=== PATIENT | male | born 1945 | race Caucasian/White ===

== ENCOUNTER 2017-09-04 12:58 | Inpatient (IN) | payer MEDICARE, MEDICAID, OTHER ==
[2017-09-04 15:05] LABS: ADD MAN DIFF? NO
[2017-09-04 15:11] LABS: WHITE BLOOD COUNT 10.4 10^3/ul (4.8-10.8)
[2017-09-04 15:11] LABS: BASOPHIL # 0.1 10^3/ul (0.0-0.1); BASOPHILS % 0.5 % (0.0-2.0); EOSINOPHILS # 0.4 10^3/ul (0.0-0.5); EOSINOPHILS % 3.9 % (0.0-7.0); HEMATOCRIT 26.9 % (42.0-52.0); HEMOGLOBIN 8.9 g/dl (14.0-18.0); LYMPHOCYTES # 0.9 10^3/ul (0.8-2.9); LYMPHOCYTES % 8.2 % (15.0-51.0); MEAN CORPUSCULAR HEMOGLOBIN 32.8 pg (29.0-33.0); MEAN CORPUSCULAR HGB CONC 33.1 g/dl (32.0-37.0); MEAN CORPUSCULAR VOLUME 99.3 fl (82.0-101.0); MEAN PLATELET VOLUME 10.3 fl (7.4-10.4); MONOCYTE # 0.9 10^3/ul (0.3-0.9); MONOCYTES % 8.8 % (0.0-11.0); NEUTROPHILS % 77.5 % (39.0-77.0); PLATELET COUNT 212 10^3/UL (140-415); RED BLOOD COUNT 2.71 10^6/ul (4.70-6.10); RED CELL DISTRIBUTION WIDTH 14.7 % (11.5-14.5)
[2017-09-04 15:27] LABS: INR 1.03; PARTIAL THROMBOPLASTIN TIME 33.8 Sec (25.0-35.0); PROTIME 13.6 Sec (11.9-14.9); PT RATIO 1.1
[2017-09-04 15:35] LABS: ANION GAP 21 (8-16); BLOOD UREA NITROGEN 93 mg/dl (7-20); CALCIUM 8.2 mg/dl (8.4-10.2); CARBON DIOXIDE 16 mmol/L (21-31); CHLORIDE 110 mmol/L (97-110); GLUCOSE 108 mg/dl (70-220); POTASSIUM 4.9 mmol/L (3.5-5.1); SODIUM 142 mmol/L (135-144)
[2017-09-04 15:46] LABS: CREATININE 14.02 mg/dl (0.61-1.24)
[2017-09-04] MEDS ORDERED: ONDANSETRON 4 MG INJ IV ×2 (17:30)
[2017-09-04] MEDS ORDERED: NACL 0.9% 3 ML SYG IV (17:30)
[2017-09-04] MEDS ORDERED: ACETAMINOPHEN 325 MG TAB PO (17:30)
[2017-09-04] MEDS: LEVOFLOXACIN 500 MG TAB PO (19:41)
[2017-09-04] MEDS: ACETAMINOPHEN 325 MG TAB PO (19:41)
[2017-09-04] MEDS: ATORVASTATIN 40 MG TAB PO (22:15)
[2017-09-05 06:27] LABS: ADD MAN DIFF? NO
[2017-09-05 06:29] LABS: BASOPHIL # 0.1 10^3/ul (0.0-0.1); BASOPHILS % 0.5 % (0.0-2.0); EOSINOPHILS # 0.5 10^3/ul (0.0-0.5); EOSINOPHILS % 5.4 % (0.0-7.0); HEMATOCRIT 26.3 % (42.0-52.0); HEMOGLOBIN 8.5 g/dl (14.0-18.0); LYMPHOCYTES % 10.3 % (15.0-51.0); MEAN CORPUSCULAR HEMOGLOBIN 32.2 pg (29.0-33.0); MEAN CORPUSCULAR HGB CONC 32.3 g/dl (32.0-37.0); MEAN CORPUSCULAR VOLUME 99.6 fl (82.0-101.0); MONOCYTE # 0.8 10^3/ul (0.3-0.9); MONOCYTES % 8.1 % (0.0-11.0); NEUTROPHILS % 74.3 % (39.0-77.0); PLATELET COUNT 206 10^3/UL (140-415); RED BLOOD COUNT 2.64 10^6/ul (4.70-6.10); RED CELL DISTRIBUTION WIDTH 14.5 % (11.5-14.5)
[2017-09-05 06:29] LABS: WHITE BLOOD COUNT 9.5 10^3/ul (4.8-10.8)
[2017-09-05 06:55] LABS: ANION GAP 22 (8-16); BLOOD UREA NITROGEN 100 mg/dl (7-20); CARBON DIOXIDE 14 mmol/L (21-31); CHLORIDE 110 mmol/L (97-110); CREATININE 13.82 mg/dl (0.61-1.24); GLUCOSE 85 mg/dl (70-220); POTASSIUM 5.2 mmol/L (3.5-5.1); SODIUM 141 mmol/L (135-144)
[2017-09-05 07:06] LABS: MAGNESIUM 1.7 mg/dl (1.7-2.5)
[2017-09-05 07:06] LABS: PHOSPHORUS 8.5 mg/dl (2.5-4.9)
[2017-09-05] MEDS: AMLODIPINE 10 MG TAB PO (09:00)
[2017-09-05] MEDS: ASPIRIN 81 MG TAB PO (09:34)
[2017-09-05] MEDS: ARIPIPRAZOLE 5 MG TAB PO (09:34)
[2017-09-05 14:50] LABS: HEPATITIS B SURFACE ANTIGEN NEGATIVE (NEGATIVE)
[2017-09-05] MEDS: ACETAMINOPHEN 325 MG TAB PO (16:44)
[2017-09-05] MEDS: HEPARIN 1000 UNITS/ML 10 ML INJ CATHETER (17:27)
[2017-09-05] MEDS: ATORVASTATIN 40 MG TAB PO (21:03)
[2017-09-05] MEDS: BENZONATATE 100 MG CAP PO (21:44)
[2017-09-06] MEDS: ACETAMINOPHEN 325 MG TAB PO ×2 (00:28→14:45)
[2017-09-06] MEDS: AMLODIPINE 10 MG TAB PO ×2 (08:36→13:24)
[2017-09-06] MEDS: BENZONATATE 100 MG CAP PO ×3 (08:41→21:20)
[2017-09-06] MEDS: ASPIRIN 81 MG TAB PO (08:41)
[2017-09-06] MEDS: ARIPIPRAZOLE 5 MG TAB PO (08:41)
[2017-09-06] MEDS: DOCUSATE SODIUM 100 MG CAP PO (13:27)
[2017-09-06] MEDS: MAGNESIUM HYDROXIDE 30ML CUP PO (13:27)
[2017-09-06] MEDS: LEVOFLOXACIN 500 MG TAB PO (18:41)
[2017-09-06] MEDS: CEPASTAT LOZENGE MT (18:52)
[2017-09-06] MEDS: ATORVASTATIN 40 MG TAB PO (21:20)
[2017-09-07] MEDS: ARIPIPRAZOLE 5 MG TAB PO (08:33)
[2017-09-07] MEDS: AMLODIPINE 10 MG TAB PO (08:34)
[2017-09-07] MEDS: BENZONATATE 100 MG CAP PO ×3 (08:34→21:49)
[2017-09-07] MEDS: ASPIRIN 81 MG TAB PO (08:34)
[2017-09-07] MEDS ORDERED: hydrALAzine 20 MG INJ IV (09:30)
[2017-09-07] MEDS: ACETAMINOPHEN 325 MG TAB PO (10:29)
[2017-09-07 12:20] LABS: ALBUMIN 3.3 g/dl (3.3-4.9); ANION GAP 17 (8-16); BLOOD UREA NITROGEN 56 mg/dl (7-20); CALCIUM 8.8 mg/dl (8.4-10.2); CARBON DIOXIDE 25 mmol/L (21-31); CHLORIDE 102 mmol/L (97-110); GLUCOSE 132 mg/dl (70-220); PHOSPHORUS 5.3 mg/dl (2.5-4.9); POTASSIUM 4.3 mmol/L (3.5-5.1); SODIUM 140 mmol/L (135-144)
[2017-09-07] MEDS: HEPARIN 1000 UNITS/ML 10 ML INJ CATHETER (16:09)
[2017-09-07] MEDS: ATORVASTATIN 40 MG TAB PO (21:49)
[2017-09-08 06:27] LABS: WHITE BLOOD COUNT 7.2 10^3/ul (4.8-10.8)
[2017-09-08 06:27] LABS: ADD MAN DIFF? NO; BASOPHIL # 0.1 10^3/ul (0.0-0.1); BASOPHILS % 0.8 % (0.0-2.0); EOSINOPHILS # 0.6 10^3/ul (0.0-0.5); EOSINOPHILS % 8.9 % (0.0-7.0); HEMATOCRIT 29.4 % (42.0-52.0); HEMOGLOBIN 9.7 g/dl (14.0-18.0); LYMPHOCYTES % 13.2 % (15.0-51.0); MEAN CORPUSCULAR HEMOGLOBIN 31.7 pg (29.0-33.0); MEAN CORPUSCULAR VOLUME 96.1 fl (82.0-101.0); MEAN PLATELET VOLUME 10.5 fl (7.4-10.4); MONOCYTE # 0.7 10^3/ul (0.3-0.9); MONOCYTES % 9.8 % (0.0-11.0); NEUTROPHIL # 4.8 10^3/ul (1.6-7.5); NEUTROPHILS % 66.6 % (39.0-77.0); PLATELET COUNT 222 10^3/UL (140-415); RED BLOOD COUNT 3.06 10^6/ul (4.70-6.10); RED CELL DISTRIBUTION WIDTH 14.4 % (11.5-14.5)
[2017-09-08 06:57] LABS: ALBUMIN 3.6 g/dl (3.3-4.9); ANION GAP 14 (8-16); BLOOD UREA NITROGEN 32 mg/dl (7-20); CALCIUM 9.1 mg/dl (8.4-10.2); CARBON DIOXIDE 26 mmol/L (21-31); CHLORIDE 102 mmol/L (97-110); GLUCOSE 94 mg/dl (70-220); MAGNESIUM 1.9 mg/dl (1.7-2.5); PHOSPHORUS 5.5 mg/dl (2.5-4.9); POTASSIUM 4.2 mmol/L (3.5-5.1); SODIUM 138 mmol/L (135-144)
[2017-09-08] MEDS: ASPIRIN 81 MG TAB PO (09:47)
[2017-09-08] MEDS: BENZONATATE 100 MG CAP PO ×3 (09:47→21:22)
[2017-09-08] MEDS: AMLODIPINE 10 MG TAB PO (09:47)
[2017-09-08] MEDS: ARIPIPRAZOLE 5 MG TAB PO (09:47)
[2017-09-08] MEDS: ALBUTEROL 0.083% (NEB) 2.5 MG/3 ML AMP HHN ×2 (10:26→14:08)
[2017-09-08] MEDS: LEVOFLOXACIN 500 MG TAB PO (18:15)
[2017-09-08] MEDS: ATORVASTATIN 40 MG TAB PO (21:22)
[2017-09-09] MEDS: BENZONATATE 100 MG CAP PO ×3 (08:40→21:12)
[2017-09-09] MEDS: ARIPIPRAZOLE 5 MG TAB PO (08:40)
[2017-09-09] MEDS: ASPIRIN 81 MG TAB PO (08:40)
[2017-09-09] MEDS: AMLODIPINE 10 MG TAB PO (09:00)
[2017-09-09] MEDS: HEPARIN 1000 UNITS/ML 10 ML INJ CATHETER (11:55)
[2017-09-09] MEDS: ATORVASTATIN 40 MG TAB PO (21:11)
[2017-09-10] MEDS: ARIPIPRAZOLE 5 MG TAB PO (09:10)
[2017-09-10] MEDS: ASPIRIN 81 MG TAB PO (09:10)
[2017-09-10] MEDS: AMLODIPINE 10 MG TAB PO (09:10)
[2017-09-10] MEDS: BENZONATATE 100 MG CAP PO ×3 (09:10→21:00)
[2017-09-10 15:12] LABS: ADD MAN DIFF? NO; HAAIG REFLEX REFLEX FILED
[2017-09-10 15:15] LABS: BASOPHILS % 0.5 % (0.0-2.0); EOSINOPHILS # 0.6 10^3/ul (0.0-0.5); EOSINOPHILS % 7.2 % (0.0-7.0); HEMATOCRIT 31.3 % (42.0-52.0); HEMOGLOBIN 10.2 g/dl (14.0-18.0); LYMPHOCYTES # 0.9 10^3/ul (0.8-2.9); LYMPHOCYTES % 12.2 % (15.0-51.0); MEAN CORPUSCULAR HEMOGLOBIN 32.2 pg (29.0-33.0); MEAN CORPUSCULAR HGB CONC 32.6 g/dl (32.0-37.0); MEAN CORPUSCULAR VOLUME 98.7 fl (82.0-101.0); MEAN PLATELET VOLUME 10.2 fl (7.4-10.4); MONOCYTE # 0.7 10^3/ul (0.3-0.9); MONOCYTES % 9.3 % (0.0-11.0); NEUTROPHIL # 5.4 10^3/ul (1.6-7.5); NEUTROPHILS % 70.3 % (39.0-77.0); PLATELET COUNT 225 10^3/UL (140-415); RED BLOOD COUNT 3.17 10^6/ul (4.70-6.10); RED CELL DISTRIBUTION WIDTH 14.3 % (11.5-14.5)
[2017-09-10 15:15] LABS: WHITE BLOOD COUNT 7.7 10^3/ul (4.8-10.8)
[2017-09-10 15:36] LABS: ALBUMIN 3.7 g/dl (3.3-4.9); ANION GAP 21 (8-16); BLOOD UREA NITROGEN 57 mg/dl (7-20); CALCIUM 9.3 mg/dl (8.4-10.2); CARBON DIOXIDE 27 mmol/L (21-31); CHLORIDE 95 mmol/L (97-110); CREATININE 7.57 mg/dl (0.61-1.24); GLUCOSE 71 mg/dl (70-220); MAGNESIUM 1.9 mg/dl (1.7-2.5); PHOSPHORUS 5.6 mg/dl (2.5-4.9); POTASSIUM 4.6 mmol/L (3.5-5.1); SODIUM 138 mmol/L (135-144)
[2017-09-10 16:07] LABS: HEPATITIS B SURFACE ANTIGEN NEGATIVE (NEGATIVE)
[2017-09-10 16:25] LABS: HEPATITIS B CORE ANTIBODY NEGATIVE (NEGATIVE); HEPATITIS C VIRAL ANTIBODY NEGATIVE (NEGATIVE)
[2017-09-10] MEDS: ATORVASTATIN 40 MG TAB PO (22:04)
[2017-09-11] MEDS: AMLODIPINE 10 MG TAB PO (09:00)
[2017-09-11] MEDS: ASPIRIN 81 MG TAB PO (09:22)
[2017-09-11] MEDS: ARIPIPRAZOLE 5 MG TAB PO (09:22)
[2017-09-11] MEDS: BENZONATATE 100 MG CAP PO ×3 (10:18→21:42)
[2017-09-11] MEDS: HEPARIN 1000 UNITS/ML 10 ML INJ CATHETER (13:33)
[2017-09-11] MEDS: ATORVASTATIN 40 MG TAB PO (21:42)
[2017-09-12] MEDS: ASPIRIN 81 MG TAB PO (08:19)
[2017-09-12] MEDS: AMLODIPINE 10 MG TAB PO (08:19)
[2017-09-12] MEDS: ARIPIPRAZOLE 5 MG TAB PO (08:19)
[2017-09-12] MEDS: BENZONATATE 100 MG CAP PO ×3 (08:20→19:52)
[2017-09-12] MEDS: ATORVASTATIN 40 MG TAB PO (19:52)
[2017-09-13] MEDS: AMLODIPINE 10 MG TAB PO (09:00)
[2017-09-13] MEDS: ARIPIPRAZOLE 5 MG TAB PO (09:31)
[2017-09-13] MEDS: BENZONATATE 100 MG CAP PO ×3 (09:31→21:02)
[2017-09-13] MEDS: ASPIRIN 81 MG TAB PO (09:31)
[2017-09-13] MEDS: HEPARIN 1000 UNITS/ML 10 ML INJ CATHETER (12:38)
[2017-09-13] MEDS: ATORVASTATIN 40 MG TAB PO (21:03)
[2017-09-14] MEDS: ARIPIPRAZOLE 5 MG TAB PO (08:55)
[2017-09-14] MEDS: BENZONATATE 100 MG CAP PO ×3 (08:55→21:08)
[2017-09-14] MEDS: ASPIRIN 81 MG TAB PO (08:55)
[2017-09-14] MEDS: AMLODIPINE 10 MG TAB PO (08:55)
[2017-09-14] MEDS: ALBUTEROL 0.083% (NEB) 2.5 MG/3 ML AMP HHN (10:40)
[2017-09-14] MEDS: ATORVASTATIN 40 MG TAB PO (21:08)
[2017-09-15] MEDS: BENZONATATE 100 MG CAP PO ×3 (08:27→21:38)
[2017-09-15] MEDS: ASPIRIN 81 MG TAB PO (08:27)
[2017-09-15] MEDS: ARIPIPRAZOLE 5 MG TAB PO (08:27)
[2017-09-15] MEDS: AMLODIPINE 10 MG TAB PO (08:28)
[2017-09-15] MEDS: ATORVASTATIN 40 MG TAB PO (21:24)
[2017-09-16] MEDS: ARIPIPRAZOLE 5 MG TAB PO (09:11)
[2017-09-16] MEDS: ASPIRIN 81 MG TAB PO (09:11)
[2017-09-16] MEDS: BENZONATATE 100 MG CAP PO ×3 (09:11→20:50)
[2017-09-16] MEDS: AMLODIPINE 10 MG TAB PO (09:12)
[2017-09-16] MEDS: ACETAMINOPHEN 325 MG TAB PO (16:15)
[2017-09-16 20:18] LABS: HEPATITIS B SURFACE ANTIBODY NEGATIVE (NEGATIVE)
[2017-09-16] MEDS: HEPARIN 1000 UNITS/ML 10 ML INJ CATHETER (20:31)
[2017-09-16] MEDS: ATORVASTATIN 40 MG TAB PO (20:50)
[2017-09-17] MEDS: BENZONATATE 100 MG CAP PO ×2 (09:04→13:00)
[2017-09-17] MEDS: ARIPIPRAZOLE 5 MG TAB PO (09:04)
[2017-09-17] MEDS: AMLODIPINE 10 MG TAB PO (09:05)
[2017-09-17] MEDS: ASPIRIN 81 MG TAB PO (09:05)
== END 2017-09-17 16:45 | disposition home or self-care (01) | DRG 640 ==
LOC: MS2 18:29 → E/R 12:58 → MS2 17:18
PROC: 5A1D70Z Performance of Urinary Filtration, Intermittent, Less than 6 Hours Per Day (ICD-10-PCS; principal; 2017-09-05)
DX: E87.70 Fluid overload, unspecified (principal); N18.6 End stage renal disease; I12.0 Hypertensive chronic kidney disease with stage 5 chronic kidney disease or end stage renal disease; N17.9 Acute kidney failure, unspecified; E87.5 Hyperkalemia; J20.9 Acute bronchitis, unspecified; E11.22 Type 2 diabetes mellitus with diabetic chronic kidney disease; Z99.2 Dependence on renal dialysis; F39 Unspecified mood [affective] disorder; Z59.0 Homelessness; D64.9 Anemia, unspecified
CPT/HCPCS: 36415; 71045; 80048; 80069; 83735; 84100; 85025; 85610; 85730; 86704; 86706; 86709; 86803; 87340; 90935; 93005; 94640; 94664; 97110; 97116; 97161; 97530; 99285-25

== ENCOUNTER 2017-10-04 18:21 | Emergency (ER) | payer MEDICAID, MEDICARE ==
[2017-10-04 20:42] LABS: ADD MAN DIFF? NO; BASOPHILS % 0.5 % (0.0-2.0); EOSINOPHILS # 0.4 10^3/ul (0.0-0.5); EOSINOPHILS % 7.8 % (0.0-7.0); HEMATOCRIT 22.1 % (42.0-52.0); HEMOGLOBIN 7.4 g/dl (14.0-18.0); IMMATURE GRANS #M 0.02 10^3/ul; IMMATURE GRANS % (M) 0.4 %; LYMPHOCYTES # 0.7 10^3/ul (0.8-2.9); LYMPHOCYTES % 12.4 % (15.0-51.0); MEAN CORPUSCULAR HEMOGLOBIN 33.3 pg (29.0-33.0); MEAN CORPUSCULAR HGB CONC 33.5 g/dl (32.0-37.0); MEAN CORPUSCULAR VOLUME 99.5 fl (82.0-101.0); MEAN PLATELET VOLUME 10.3 fl (7.4-10.4); MONOCYTE # 0.6 10^3/ul (0.3-0.9); MONOCYTES % 11.2 % (0.0-11.0); NEUTROPHIL # 3.8 10^3/ul (1.6-7.5); NEUTROPHILS % 67.7 % (39.0-77.0); PLATELET COUNT 137 10^3/UL (140-415); RED BLOOD COUNT 2.22 10^6/ul (4.70-6.10); RED CELL DISTRIBUTION WIDTH 15.2 % (11.5-14.5)
[2017-10-04 20:42] LABS: WHITE BLOOD COUNT 5.6 10^3/ul (4.8-10.8)
[2017-10-04 21:04] LABS: ANION GAP 21 (8-16); BLOOD UREA NITROGEN 87 mg/dl (7-20); CALCIUM 8.1 mg/dl (8.4-10.2); CARBON DIOXIDE 17 mmol/L (21-31); CHLORIDE 109 mmol/L (97-110); CREATININE 10.07 mg/dl (0.61-1.24); GLUCOSE 102 mg/dl (70-220); POTASSIUM 4.8 mmol/L (3.5-5.1); SODIUM 142 mmol/L (135-144)
== END 2017-10-05 05:59 | disposition home or self-care (01) ==
LOC: E/R 10-05 05:59
DX: I12.0 Hypertensive chronic kidney disease with stage 5 chronic kidney disease or end stage renal disease (principal); N18.6 End stage renal disease; D64.9 Anemia, unspecified; R40.2142 Coma scale, eyes open, spontaneous, at arrival to emergency department; R40.2252 Coma scale, best verbal response, oriented, at arrival to emergency department; R40.2362 Coma scale, best motor response, obeys commands, at arrival to emergency department; Z76.0 Encounter for issue of repeat prescription; Z79.82 Long term (current) use of aspirin; Z99.2 Dependence on renal dialysis
CPT/HCPCS: 36415; 71045; 80048; 85025; 93005; 99285-25

== ENCOUNTER 2017-10-11 23:29 | Emergency (ER) | payer MEDICAID, MEDICARE ==
[2017-10-12] MEDS ORDERED: NITROGLYCERIN 50 MG/D5W (PMX) 250 ML IV (00:30)
[2017-10-12 00:52] LABS: ADD MAN DIFF? NO
[2017-10-12 00:56] LABS: WHITE BLOOD COUNT 8.6 10^3/ul (4.8-10.8)
[2017-10-12 00:56] LABS: BASOPHILS % 0.4 % (0.0-2.0); EOSINOPHILS # 0.3 10^3/ul (0.0-0.5); EOSINOPHILS % 3.7 % (0.0-7.0); HEMATOCRIT 21.5 % (42.0-52.0); HEMOGLOBIN 7.3 g/dl (14.0-18.0); LYMPHOCYTES # 0.9 10^3/ul (0.8-2.9); LYMPHOCYTES % 10.5 % (15.0-51.0); MEAN CORPUSCULAR HEMOGLOBIN 34.8 pg (29.0-33.0); MEAN CORPUSCULAR VOLUME 102.4 fl (82.0-101.0); MEAN PLATELET VOLUME 11.5 fl (7.4-10.4); MONOCYTE # 0.6 10^3/ul (0.3-0.9); MONOCYTES % 7.1 % (0.0-11.0); NEUTROPHIL # 6.7 10^3/ul (1.6-7.5); NEUTROPHILS % 77.9 % (39.0-77.0); PLATELET COUNT 220 10^3/UL (140-415); RED CELL DISTRIBUTION WIDTH 15.1 % (11.5-14.5)
== END 2017-10-12 07:13 | disposition left against medical advice (07) ==
LOC: E/R 10-12 07:13
DX: I16.0 Hypertensive urgency (principal); E87.70 Fluid overload, unspecified; R07.2 Precordial pain; R40.2142 Coma scale, eyes open, spontaneous, at arrival to emergency department; R40.2252 Coma scale, best verbal response, oriented, at arrival to emergency department; R40.2362 Coma scale, best motor response, obeys commands, at arrival to emergency department; I12.0 Hypertensive chronic kidney disease with stage 5 chronic kidney disease or end stage renal disease; N18.6 End stage renal disease; Z99.2 Dependence on renal dialysis; Z79.82 Long term (current) use of aspirin
CPT/HCPCS: 71045; 85025; 93005; 99285-25

== ENCOUNTER 2017-11-02 21:17 | Emergency (ER) | payer SELFPAY, MEDICAID, MEDICARE ==
[2017-11-03 01:09] LABS: ADD MAN DIFF? NO
[2017-11-03 01:11] LABS: BASOPHIL # 0.1 10^3/ul (0.0-0.1); BASOPHILS % 0.8 % (0.0-2.0); EOSINOPHILS # 0.2 10^3/ul (0.0-0.5); EOSINOPHILS % 2.4 % (0.0-7.0); HEMATOCRIT 28.8 % (42.0-52.0); HEMOGLOBIN 9.3 g/dl (14.0-18.0); LYMPHOCYTES # 0.8 10^3/ul (0.8-2.9); LYMPHOCYTES % 10.8 % (15.0-51.0); MEAN CORPUSCULAR HGB CONC 32.3 g/dl (32.0-37.0); MEAN CORPUSCULAR VOLUME 108.3 fl (82.0-101.0); MONOCYTE # 0.9 10^3/ul (0.3-0.9); MONOCYTES % 12.1 % (0.0-11.0); NEUTROPHIL # 5.3 10^3/ul (1.6-7.5); NEUTROPHILS % 73.6 % (39.0-77.0); PLATELET COUNT 208 10^3/UL (140-415); RED BLOOD COUNT 2.66 10^6/ul (4.70-6.10); RED CELL DISTRIBUTION WIDTH 15.5 % (11.5-14.5)
[2017-11-03 01:11] LABS: WHITE BLOOD COUNT 7.2 10^3/ul (4.8-10.8)
[2017-11-03] MEDS: ONDANSETRON 4 MG INJ IV (01:13)
[2017-11-03 01:49] LABS: ALANINE AMINOTRANSFERASE 18 IU/L (13-69); ALBUMIN 4.2 g/dl (3.3-4.9); ALKALINE PHOSPHATASE 87 IU/L (42-121); ANION GAP 21 (8-16); ASPARTATE AMINO TRANSFERASE 24 IU/L (15-46); BILIRUBIN,INDIRECT 0.7 mg/dl (0-1.1); BILIRUBIN,TOTAL 0.7 mg/dl (0.2-1.3); BLOOD UREA NITROGEN 50 mg/dl (7-20); CALCIUM 9.7 mg/dl (8.4-10.2); CARBON DIOXIDE 25 mmol/L (21-31); CHLORIDE 104 mmol/L (97-110); CREATININE 8.04 mg/dl (0.61-1.24); GLUCOSE 84 mg/dl (70-220); LIPASE 218 U/L (23-300); POTASSIUM 5.2 mmol/L (3.5-5.1); SODIUM 145 mmol/L (135-144)
[2017-11-03 03:29] LABS: ADD UMIC YES; UR ASCORBIC ACID NEGATIVE (NEGATIVE); UR BILIRUBIN (Dip) NEGATIVE (NEGATIVE); UR BLOOD (Dip) NEGATIVE (NEGATIVE); UR CLARITY CLEAR (CLEAR); UR COLOR STRAW (YELLOW); UR GLUCOSE (Dip) NEGATIVE (NEGATIVE); UR KETONES (Dip) TRACE mg/dL (NEGATIVE); UR LEUKOCYTE ESTERASE (Dip) NEGATIVE Leu/ul (NEGATIVE); UR NITRITE (Dip) NEGATIVE (NEGATIVE); UR RBC 0 /HPF (0-5); UR SPECIFIC GRAVITY (Dip) 1.007 (1.003-1.030); UR TOTAL PROTEIN (Dip) 3+ mg/dl (NEGATIVE); UR UROBILINOGEN (Dip) NEGATIVE (NEGATIVE); UR WBC 0 /HPF (0-5)
[2017-11-03 03:46] LABS: TROPONIN-I 0.071 ng/ml (0.000-0.120)
== END 2017-11-03 03:30 | disposition home or self-care (01) ==
LOC: E/R 21:17
DX: R10.9 Unspecified abdominal pain (principal); R11.2 Nausea with vomiting, unspecified; I12.0 Hypertensive chronic kidney disease with stage 5 chronic kidney disease or end stage renal disease; N18.6 End stage renal disease
CPT/HCPCS: 36415; 74176; 80053; 81001; 83690; 84484; 85025; 93005; 96374; 99285-25

== ENCOUNTER 2017-11-04 01:10 | Emergency (ER) | payer SELFPAY, MEDICARE | END 2017-11-04 01:47 | disposition home or self-care (01) | LOC: E/R 01:10 | DX: Z76.5 Malingerer [conscious simulation] (principal); R40.2142 Coma scale, eyes open, spontaneous, at arrival to emergency department; R40.2252 Coma scale, best verbal response, oriented, at arrival to emergency department; R40.2362 Coma scale, best motor response, obeys commands, at arrival to emergency department; I12.0 Hypertensive chronic kidney disease with stage 5 chronic kidney disease or end stage renal disease; N18.6 End stage renal disease; Z99.2 Dependence on renal dialysis | CPT/HCPCS: 99283 ==